=== PATIENT | female | born 1965 | race Caucasian/White ===

== ENCOUNTER 2020-12-08 15:49 | Emergency (ER) | payer BC, SELFPAY ==
[2020-12-08 15:52] VITALS: BP 172/113; PULSE 86; RESP 18; TEMP 37.1; O2SAT 97; BMI 25.7
--- NOTE | 2020-12-08 16:02 | W.ED.EYEPROB ---
HPI - Eye Problem General: Chief complaint: Eye Problems Stated complaint: R EYE INJURY Time Seen by Provider: 12/08/20 15:58 History of Present Illness: HPI Narrative: Patient is a 55-year-old female comes to the ED with right eye injury. Injury occurred just prior to arrival. Patient says her dog jumped up on her and the paw or her glasses caused injury to her right eye. Patient's is present and says that she was bleeding from her right eye and says that he could see some blood dripping out of from the lateral side of eyeball. Patient says she was wearing glasses at the time and is unsure if the glasses cut her eye or the dog's ball did. The bleeding from the eye has since stopped but patient says her vision is blurry or than usual. Patient needs updated tetanus shot and says that the dog that pawed her face was family dog, fully vaccinated and has received rabies vaccinations. Patient is from [facility] and is visiting her family here in [place]. She states that she does have an analyst geochemical prospect[employer] that she sees in [place] and she called them before she came to the ED and will have an appointment set up early next week to reevaluate her right eye. Associated symptoms: Denies fever(s), headache(s), nausea, neck pain or vomiting Review of Systems Const: Denies: fever(s), chills or fatigue Eyes: Reports: blurry vision, eye discomfort and eye redness; Denies: change in vision ENMT: Denies: throat pain, odynophagia, nasal discharge or nasal congestion Card: Denies: chest pain, palpitations, edema, swelling of feet/ankles, dyspnea on exertion or orthopnea Resp: Denies: dyspnea, productive cough or non-productive cough GI: Denies: abdominal pain, nausea, vomiting, diarrhea, constipation or hematochezia : Denies: flank pain, dysuria or hematuria Musc: Denies: neck pain, back pain or extremity swelling Skin/Breast: Denies: rash or new lesions Neuro: Denies: headache(s), numbness in extremities or weakness in extremities Physical Exam Const: COMMON NORMALS: no acute distress, patient oriented x3 and alert GENERAL APPEARANCE: cooperative and comfortable HENMT: COMMON NORMALS: normocephalic HEAD & SCALP: normocephalic MOUTH: Normal oral and palatal mucosa present THROAT: posterior oropharynx normal and uvula midline Eye: COMMON NORMALS: Equal, round and reactive pupils present and EOMs intact bilaterally EYELID: eyelid abnormality right upper eyelid swelling and right lower eyelid swelling CONJUNCTIVA: Yes conjunctival abnormal positive right subconjunctival hemorrhage SCLERA: sclerae normal PUPIL: Yes Equal, round and reactive pupils present SLIT LAMP EXAM: Yes slit lamp exam performed with fluorescein, Yes conjunctiva/sclera Conjunctiva/sclera details: subconjunctival hemorrhage and Yes cornea Cornea details: linear corneal abrasion Neck/C-Spine: COMMON NORMALS: supple GENERAL: Yes normal visual inspection Resp: COMMON NORMALS: normal respiratory effort, No retractions, No use of accessory muscles and clear to auscultation bilaterally AUSCULTATION: clear to auscultation bilaterally Cardio: COMMON NORMALS: regular rate, regular rhythm, S1 normal heart sound present, S2 normal heart sound present, No gallops present (Cardio), No clicks present (Cardio), No murmurs present (Cardio) and Peripheral pulses 2+ throughout RATE: regular rate RHYTHM: regular rhythm HEART SOUNDS: S1 normal heart sound present and S2 normal heart sound present PERIPHERAL PULSES: Peripheral pulses 2+ throughout GI: COMMON NORMALS: Normal to inspection, nondistended, normoactive bowel sounds present, Soft to palpation, non-tender and no masses PALPATION: Yes Soft to palpation : COMMON NORMALS: Yes no CVA tenderness BLADDER/KIDNEY EXAM: Yes no CVA tenderness Back/Pelvis: COMMON NORMALS: no CVA tenderness Extremity: COMMON NORMALS: normal to inspection Neuro: COMMON NORMALS: patient oriented x3 and moves all extremities SENSORIUM/ORIENTATION: Yes alert Skin: GENERAL SKIN EXAM: dry skin Course Consultations: Consultation #1: I spoke with Juliet for [facility]. I told about patient case and he recommended doing a slit lamp exam and making sure that the sclera and globe of the eye is intact. If it appears to just be a superficial laceration to the eyeball he recommended putting patient on Maxitrol 4 times a day for a week having her follow-up with her eye doctor. He is said that [facility] would be able to see here if she needs further evaluation in the next couple days or if symptoms are not improving. Time: 16:21 Vital Signs: Vital signs: Vital Signs Temperature 98.7 F 03/05/21 15:52 Pulse Rate 86 12/08/20 15:52 Respiratory Rate 18 12/08/20 15:52 Blood Pressure 172/113 12/08/20 15:52 Pulse Oximetry 97 12/08/20 15:52 MDM - Eye Problem MDM Narrative: Medical decision making narrative: Patient is a 55-year-old female comes to the ED with right eye injury. Her family dog jumped up and pawed patient's face. Patient unsure if it was her glasses or dogs paw that caused eye injury. I performed a slit lamp exam with fluorescein and globe was intact and there appeared to be a superficial abrasion on the cornea. No other acute findings. I had Dr. De Leon come in and examine patient's eye with slit lamp and he agrees my findings. I contacted [facility] and spoke with Juliet there. He recommended having patient sent home with a prescription of Maxitrol and she can apply that on her eye 4 times a day for the next week. He told me that if patient is not improving over the next 24 to 48 hours she can contact the [facility] to get evaluated or come back to the ED. Patient was discharged with Maxitrol and instructed to return to the ED within the next 24 to 48 hours if symptoms are not improving. I also told patient to schedule an appointment with her analyst geochemical prospecting early next week to reevaluate her right eye as well. Patient understood and agreed with plan. Discharge Plan Discharge Patient Disposition: Home Clinical Impression: Corneal abrasion Qualifiers: Encounter type: initial encounter Laterality: right Qualified Code(s): S05.01XA - Injury of conjunctiva and corneal abrasion without foreign body, right eye, initial encounter Condition: Stable Prescriptions: New neomycin-polymyxin B-dexameth 3.5 mg/g-10,000 unit/g-0.1 % ointment 1 applic ophthalmic (eye) Q6H 7 Days Qty: 3.5 RF: 0 Discharge Orders: Discharge ED (Routine); Ordered 12/08/20 Ordered By: Dwain Huber Discharge Diet: Regular Discharge Activity: Limit activity as instructed Patient Instructions: Corneal Abrasion (ED) Activity Restrictions/Additional Instructions: Follow-up with your analyst geochemical prospect[employer] early next week to reevaluate right eye. Keep eye covered for the next couple days to allow for healing. If you are not having any improvement over the next 48 hours you can return to the ED to be reevaluated and we can call in eye doctor to examine your eye. Take medications as prescribed. Return to the ER or your medical provider if condition worsens. Please read and understand discharge instructions. If any questions, please ask. Coding Level of Care Code ED Structural Steel Engineer for Jenny Fwd Exam Comprehensive
[2020-12-08] MEDS: fluorescein 1 mg Strip EYE-RIGHT (16:22)
[2020-12-08] MEDS: eye irrigation 30 mL Btl EYE-RIGHT (16:22)
[2020-12-08] MEDS: tetracaine 0.5% Op Soln 4 mL Btl 1 DROP EYE-RIGHT (16:23)
[2020-12-08] MEDS: neomycin-poly-dex Op oint 3.5 gm 1 APPLIC EYE-RIGHT (16:40)
[2020-12-08] MEDS: tetanus-dipt-pertussis 0.5 mL SDV IM (16:40)
== END 2020-12-08 17:00 | disposition home or self-care (01) ==
PROVIDERS: Emergency Provider Physician Assistant
DX: S05.01XA Injury of conjunctiva and corneal abrasion without foreign body, right eye, initial encounter (principal); W54.8XXA Other contact with dog, initial encounter; Z23 Encounter for immunization
CPT/HCPCS: 90471; 90715; 99283